=== PATIENT | female | born 1995 ===

== ENCOUNTER 2024-06-30 13:53 | Inpatient (IN) ==
[2024-07-01] MEDS: Al Hydrox/Mg Hydrox/Simet LIQ 30 ML UDC PO PRN (02:05)
[2024-07-01] MEDS ORDERED: Lorazepam PYXIS KEY PRN (12:37)
[2024-07-01] MEDS ORDERED: LORazepam 2 mg VIAL 1 ml IM ONE (12:37)
[2024-07-01] MEDS: LORazepam 2 MG/ML 1 mL Syringe ONE ×2 (13:14→16:26)
[2024-07-01] MEDS: LORazepam 2 MG/ML 1 mL Syringe IM ONE (16:26)
[2024-07-03] MEDS ORDERED: GUM PO PRN (14:22)
[2024-07-03] MEDS ORDERED: NICOTINE GUM 2 MG PO PRN (14:22)
[2024-07-03] MEDS: Nicotine GUM 2MG FRUIT FLAVOR PO ONE (14:24)
[2024-07-04] MEDS: Nicotine GUM 2MG FRUIT FLAVOR PO PRN (18:52)
[2024-07-12 08:06] LABS: Cholesterol 125 mg/dL; HDL Cholesterol 29.7 mg/dL; LDL Cholesterol 61 mg/dL; Triglycerides 173 mg/dL
[2024-07-12 08:13] LABS: HCG Pregnancy < 0.60 mIU/mL
[2024-07-13 11:33] LABS: HIV 4th Generation Nonreactive (Nonreactive)
[2024-07-13 11:40] LABS: Hepatitis C Antibody Negative (Negative)
[2024-07-14] MEDS: Nicotine Lozenge mini 2 MG LOZNG.MINI MT PRN (16:15)
[2024-07-19] MEDS ORDERED: RISPERIDONE SUBCUT ONE (12:00)
[2024-07-20] MEDS: RISPERIDONE SUBCUT ONE (12:45)
[2024-07-21] MEDS: risperiDONE ER SUBCUT (NF) 200 MG/0.56 ML SYRINGE SUBCUT ONE (12:01)
[2024-07-22] MEDS: Nicotine GUM 2MG FRUIT FLAVOR PO PRN (16:27)
[2024-07-22] MEDS: Nicotine GUM 2MG FRUIT FLAVOR PO ONE (17:17)
[2024-07-28] MEDS: Nicotine Lozenge mini 2 MG LOZNG.MINI MT PRN (13:44)
[2024-07-28] MEDS: Nicotine PATCH 14 MG/24 HR PATCH TRANSDERM SCH (13:45)
[2024-08-02] MEDS ORDERED: Senna TAB 8.6 mg TAB PO PRN (11:33)
[2024-08-02] MEDS: Polyethylene Glycol 3350 17 GM PACKET PO SCH (18:13)
[2024-08-04] MEDS ORDERED: Polyethylene Glycol 3350 17 GM PACKET PO PRN (11:44)
[2024-08-13] MEDS: Nicotine PATCH 7 MG/24 HR PATCH TRANSDERM SCH (20:59)
[2024-08-14] MEDS: Nicotine GUM 2MG FRUIT FLAVOR PO PRN (13:21)
== END 2024-08-17 11:52 | DRG 750 ==
LOC: BSU 17:44
PROVIDERS: ADMIT Psychiatry & Neurology Psychiatry; ATTEND Psychiatry & Neurology Psychiatry